=== PATIENT | male | born 1985 | race Caucasian/White ===

== ENCOUNTER → 2021-08-21 10:00 | Outpatient (CLI) | payer BC, SELFPAY ==
--- NOTE | ~2021-08-21 | XR_ITS ---
EXAMINATION: XR lumbar spine 2-3V DATE: 08/21/2021 10:51 INDICATION: Low back pain and right leg numbness TECHNIQUE: Anteroposterior and lateral views of the lumbar spine, and cone-down lateral view of the l umbosacral junction were obtained. COMPARISON: None. FINDINGS: There is no fracture, dislocation, or subluxation. The vertebral body heights, alignment, a nd intervertebral disc spaces are normal. The bowel gas pattern is normal. IMPRESSION: 1. No acute osseous abnormality. Reviewed, dictated and finalized at location A.
== END ==
PROVIDERS: PCP Family Medicine; Visit Provider Nurse Practitioner Family
DX: M54.41 Lumbago with sciatica, right side (principal)
CPT/HCPCS: 72100

== ENCOUNTER 2022-04-09 10:14 | Emergency (ER) | payer BC, SELFPAY ==
--- NOTE | 2022-04-09 10:16 | ED.URI ---
HPI - URI/Sore Throat General Stated Complaint: Sore Throat,Congestion Time Seen by Provider: 04/09/22 10:15 Source: patient and RN notes reviewed Mode of arrival: ambulatory Limitations: no limitations History of Present Illness HPI Narrative: 37-year-old male presents with concern for nasal congestion and sore throat for 3 days. Reports he has been taking Sudafed with some relief. He reports sore throat improved over the last day. He denies fever, aches, chills, sweats. MD elicited complaint: sore throat and nasal congestion Related Data Allergies Allergy/AdvReac Type Severity Reaction Status Date / Time No Known Allergies Allergy Verified 04/09/22 10:36 Review of Systems Review of Systems: CONSTITUTIONAL: Denies malaise, chills, sweats, or fever. EYES: Denies visual changes, redness, or discharge. ENT: Reports rhinorrhea, congestion, sore throat. Denies sinus pain, otalgia CARDIOVASCULAR: Denies chest pain, palpitations, or edema. RESPIRATORY: Denies cough. Denies dyspnea. GASTROINTESTINAL: Denies abdominal pain, nausea, vomiting, diarrhea SKIN: Denies rash or itching. MUSCULOSKELETAL: Denies myalgia. NEUROLOGIC: Denies headache. All systems reviewed & are unremarkable except as noted in HPI and below PMFSH Past Medical History Medical History BMI 27.0-27.9,adult BMI 29.0-29.9,adult Changing skin lesion Chronic cough COVID-19 Dietary counseling and surveillance (05/27/16) Encounter for screening for lipoid disorders Herpes zoster without complication Ingrown right greater toenail Lichen simplex chronicus Neck muscle spasm Numbness of toes Proteinuria of undiagnosed cause Screening for diabetes mellitus Varicosities of leg Vasectomy planned Surgical History Surgical History Hx of LASIK Family History Family History Mother Family history of diabetes mellitus in first degree relative COVID-19 Diabetes mellitus Grandparent Family history of coronary artery disease Father COVID-19 Sibling COVID-19 Social History Social History Smoking status: Never smoker Second hand tobacco smoke exposure: No Alcohol intake: current Substance use: never Substance use type: does not use 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 There is no relevant family history pertinent to the presenting complaint Exam Narrative: GENERAL: Well-appearing, well-nourished, and in no acute distress. HEAD: Normocephalic EYES: PERRLA, conjunctivae clear ENT: Nares clear, turbinates edematous and erythematous, clear discharge. Mucous membranes moist. TM pearly duckworth with sharp light reflex bilaterally; no tragal tenderness. Oropharynx not erythematous without lesions. Tonsils not enlarged and without exudate, no drooling, no hoarseness, no trismus, uvula midline. NECK: Supple. No lymphadenopathy CHEST: Clear to auscultation, breath sounds equal. No wheezing, rhonchi, rales, or stridor. No respiratory distress, speaks in full sentences. HEART: Regular rate and rhythm. No murmur heard. SKIN: Warm, dry, no rash. NEURO: Alert and oriented x3. PSYCH: Normal mood and affect Course Course Emergency Course: Patient is aware of diagnosis, understands and agrees to treatment plan. Anticipatory guidance given. Patient agrees to follow-up as directed and is aware of reasons to seek care at the emergency department. Portions of this record may have been created with voice recognition software Level of Care: Express Care Visit Vital Signs Vital signs: Reviewed. MDM - URI/Sore Throat MDM Narrative Medical decision making narra
[2022-04-09 10:33] VITALS: BP 116/81; PULSE 68; RESP 18; TEMP 36; O2SAT 99
== END 2022-04-09 10:55 | disposition home or self-care (01) ==
PROVIDERS: Emergency Provider Nurse Practitioner; PCP Family Medicine
DX: J06.9 Acute upper respiratory infection, unspecified (principal)
CPT/HCPCS: 99211; G0463

== ENCOUNTER 2022-08-20 10:16 | Emergency (ER) | payer BC, SELFPAY ==
--- NOTE | 2022-08-20 10:19 | ED.GENADULT ---
HPI - General Adult General Chief complaint: Upper Respiratory Infection Stated complaint: Sore Throat,Congestion,Headache Time Seen by Provider: 08/20/22 10:19 Source: patient Mode of arrival: ambulatory Limitations: no limitations History of Present Illness HPI narrative: 37-year-old male patient presents to the [facility] with complaints of a sore throat for the past week and half. Patient states he has had some runny nose, congestion and woke up today with some sinus pressure and headache. Denies fevers, body aches or chills. Denies chest pain, shortness of breath. Patient states he has had a mild cough intermittently. Patient denies abdominal pain, nausea, vomiting or diarrhea. Patient states he has tried [id number] NyQuil couple of times for his symptoms. Patient denies any antihistamine use. Related Data Allergies Allergy/AdvReac Type Severity Reaction Status Date / Time No Known Allergies Allergy Verified 08/20/22 10:17 Review of Systems Review of Systems: CONSTITUTIONAL: Denies fever, chills, or sweats. EYES: Denies visual changes, redness, or discharge. ENT: Positive rhinorrhea, congestion, sore throat, deniesotalgia. CARDIOVASCULAR: Denies chest pain, palpitations, or edema. RESPIRATORY: positive mild intermittent cough , denies dyspnea. GASTROINTESTINAL: Denies abdominal pain, nausea, vomiting, or diarrhea. GENITOURINARY: Denies dysuria or hematuria. SKIN: Denies rash or itching. MUSCULOSKELETAL: Denies back pain, joint pain, or myalgia. NEUROLOGIC: positive headache, denies numbness, or weakness. PSYCHIATRIC: Denies anxiety or depression. [facility] Past Medical History Medical History BMI 27.0-27.9,adult BMI 29.0-29.9,adult Changing skin lesion Chronic cough COVID-19 Dietary counseling and surveillance (05/27/16) Encounter for screening for lipoid disorders Herpes zoster without complication Ingrown right greater toenail Lichen simplex chronicus Neck muscle spasm Numbness of toes Proteinuria of undiagnosed cause Screening for diabetes mellitus Varicosities of leg Vasectomy planned Surgical History Surgical History Hx of LASIK Family History Family History Mother Family history of diabetes mellitus in first degree relative COVID-19 Diabetes mellitus Grandparent Family history of coronary artery disease Father COVID-19 Sibling COVID-19 Social History Social History Smoking status: Never smoker Second hand tobacco smoke exposure: No Alcohol intake: current Substance use: never Substance use type: does not use Living arrangements: with family Occupation/Education: occupation 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 There is no relevant family history pertinent to the presenting complaint. Exam Narrative: GENERAL: Well-appearing, well-nourished, and in no acute distress. HEAD: Normocephalic, atraumatic. No tenderness on palpation to frontal or maxillary sinuses EYES: PERRLA and EOMI. ENT: Nares with erythema and edema noted bilaterally, no rhinorrhea or epistaxis. Mucous membranes moist. posterior pharynx with postnasal drip noted. No tonsillar enlargement, no exudates or lesions present. Bilateral TMs are clear no erythema or foreign bodies the canal. NECK: Supple. No lymphadenopathy CHEST: Clear to auscultation. No respiratory distress. HEART: Regular rate and rhythm. No murmur heard. Normal peripheral pulses. ABDOMEN: Soft, nontender, nondistended, normal active bowel sounds. EXTREMITIES: Normal range of motion. No edema. SKIN: Warm, dry, no r
[2022-08-20 10:23] VITALS: BP 118/74; PULSE 99; RESP 18; TEMP 36.4; O2SAT 97
== END 2022-08-20 10:40 | disposition home or self-care (01) ==
PROVIDERS: Emergency Provider Nurse Practitioner Family; PCP Family Medicine
DX: J01.90 Acute sinusitis, unspecified (principal); B97.89 Other viral agents as the cause of diseases classified elsewhere
CPT/HCPCS: 87081; 87880; 99213; G0463